=== PATIENT | female | born 1960 | race Caucasian/White ===

== ENCOUNTER → 2018-08-06 | Outpatient (CLI) | payer OTHER ==
[~2018-08-06] MED LIST: PANT40TA25 PO
== END | disposition home or self-care (01) ==
LOC: RAH 09:02
PROVIDERS: ATTEND Internal Medicine Hematology & Oncology
DX: C78.7 Secondary malignant neoplasm of liver and intrahepatic bile duct (principal); R59.9 Enlarged lymph nodes, unspecified; K76.89 Other specified diseases of liver
CPT/HCPCS: 76700